=== PATIENT | female | born 1955 | race Caucasian/White ===

== ENCOUNTER → 2023-12-12 13:08 | Outpatient (REF) | payer MEDICARE, OTHER, SELFPAY | LOC: HWRAD 13:08 | PROVIDERS: ATTENDING PHYSICIAN Nurse Practitioner Family; FAMILY PHYSICIAN Internal Medicine | DX: K59.01 Slow transit constipation (principal) | CPT/HCPCS: 74018 ==

== ENCOUNTER → 2023-12-20 13:33 | Outpatient (REF) | payer MEDICARE, OTHER, SELFPAY | LOC: HWRAD 13:33 | PROVIDERS: ATTENDING PHYSICIAN Obstetrics & Gynecology; FAMILY PHYSICIAN Internal Medicine | DX: N95.9 Unspecified menopausal and perimenopausal disorder (principal) | CPT/HCPCS: 77080 ==

== ENCOUNTER → 2024-01-10 06:24 | Day surgery (SDC) | payer MEDICARE, OTHER, SELFPAY | LOC: GI 06:24 | PROVIDERS: ATTENDING PHYSICIAN Internal Medicine Gastroenterology | DX: Z12.11 Encounter for screening for malignant neoplasm of colon (principal); D12.2 Benign neoplasm of ascending colon; D12.3 Benign neoplasm of transverse colon; D12.4 Benign neoplasm of descending colon; Z86.010 Personal history of colon polyps | CPT/HCPCS: 45385; 45380; 88305 ==

== ENCOUNTER → 2024-02-03 19:59 | Outpatient (REF) | payer MEDICARE, OTHER, SELFPAY | LOC: MRI 3T 19:59 | PROVIDERS: ATTENDING PHYSICIAN Physician Assistant Medical; FAMILY PHYSICIAN Internal Medicine | DX: M25.512 Pain in left shoulder (principal) | CPT/HCPCS: 73221 ==

== ENCOUNTER → 2024-03-06 06:43 | Day surgery (SDC) | payer MEDICARE, OTHER, SELFPAY | LOC: GI 06:43 | PROVIDERS: ATTENDING PHYSICIAN Internal Medicine Gastroenterology | DX: Z12.11 Encounter for screening for malignant neoplasm of colon (principal); D12.2 Benign neoplasm of ascending colon; D12.5 Benign neoplasm of sigmoid colon; Z86.010 Personal history of colon polyps | CPT/HCPCS: 45385; 45380; 88305 ==

== ENCOUNTER 2024-06-16 12:23 | Emergency (ER) | payer MEDICARE, OTHER, SELFPAY ==
[2024-06-16 12:25] VITALS: BP 133/79
--- NOTE | 2024-06-16 13:31 | ED.GENMED ---
History of Present Illness
General
Chief Complaint: Musculo-Skeletal Complaint
Source: patient
Exam Limitations: none
Time Seen by Provider: 06/16/24 12:36
Nursing documentation reviewed up to this point in time: agreed with
History of Present Illness
History of Present Illness:
pt is a 69 y/o F
h/o colitis
here with L ankle pain/swelling laterally when she stood up this morning and her foot was asleep so she accidetnaly rolled her L ankle
she is unable to bear weight she says but was able to walk in to triage
nothing taken for pain
she says she has fractured this ankle before previously
no pain in her knee, calf, foot
Past History
Past History
ED Past Medical History: Cancer (Ovarian cancer), GERD (Hiatal hernia) and Other (Lichen sclerosis, interstitial cystitis)
ED Past Surgical History: Gynecological and Other (See H&P-mastectomy GREGORIO/BSO)
Social History
Tobacco: Non-smoker
Alcohol: None
Drug: None
Personal:
Living: with family
Employment: Retired
Family History
Family History: Other (Noncontributory)
Review of Systems
Review of Systems
Allergies reviewed?: Yes
All Other Systems: Not applicable
Phy Exam
Physical Exam
Physical Exam:
GENERAL: Alert , in no apparent distress, comfortable at rest
HEAD: NCAT
CV: 2+ DP PULSES B/L
NEUROLOGICAL: Alert and oriented, no focal neuro deficits, , 5/5 strength, sensation intact, ambulation slight limp right leg
SKIN: Warm and dry, bruising L lateral ankle
MUSCULOSKELETAL: moderate STS left ankle with tenderness to malleolus laterally; pain with inversion and eversion;
no tenderness at the base of the 5th metatarsal, no other foot tenderness
no knee/prox tib/fib tenderness, full painless ROM;
PSYCH: Normal and appropriate interaction.
Course
Orders/Labs/Results
Orders:
Orders
06/16/24 12:25
CR Ankle - Left Min 3 Views Urgent
Comment:
Reason For Exam: injury/pain
Vital Signs
Initial and Last Documented VS:
Initial Vital Signs
Temp Pulse Resp BP Pulse Ox
97.6 F 100 16 133/79 98
06/16/24 12:25 06/16/24 12:25 06/16/24 12:25 06/16/24 12:25 06/16/24 12:25
Last Documented Vital Signs
Temp Pulse Resp BP Pulse Ox
97.6 F 100 16 133/79 98
06/16/24 12:25 06/16/24 12:25 06/16/24 12:25 06/16/24 12:25 06/16/24 12:25
MDM/Problems Addressed
Differential Diagnosis Includes:
ankles prain, ankle fracture
MDM/Problems Addressed:
69 y/o F with previous ankle fracture
stood up and inverted L ankle, heard crack
pain and bruising an dswelling laterlaly
moving ankle well
did ambulate to the ER with limp
no foot tenderness
mod swelling
xray indep reviewed, appreiated subtle abnormality distal fibula on the obliqu e and d/w rads attendin rizwan did not believe this was fracture
walking boot and crutches
f/u ortho prn
*Critical Care Note
Total Time (30-74mins, 75-104mins- exclusive of procedures): Not Applicable
ED Attending Note
-
Portions of this chart may have been created with voice recognition software.� Occasional wrong word or��sound alike� substitutions may have occurred due to the inherent limitations of voice recognition software.
Discharge Plan
Departure
Patient Disposition: Home (Routine Discharge)
Date of Disposition: 06/16/24
Time of Disposition: 13:47
Patient with high blood pressure during this ER visit?: No
Condition: Fair
Covid-19: Not Applicable
Discharge Problem:
Left ankle sprain
Instructions: Sprain (DC)
Prescriptions:
No Action
cholecalciferol (vitamin D3) 1,000 UNITS tablet
1,000 units PO DAILY
L.acidoph, paracasei,B. lactis 1 EACH capsule
1 ea PO DAILY
turmeric 400 MG capsule
1 dose PO DAILY
Activity Restrictions/Additional Instructions:
YOUR XRAY DID NOT SHOW ANY FRACTURE
ELEVATE, ICE OFF AND ON
USE THE BOOT WHEN YOU ARE WALKING
YOU CAN USE A CANE OR WALKER TO HELP WITH THIS
FOLLOW UP WITH ORTHOPEDICS THIS WEEK NEEDED
TYELNOL FOR PAIN
RETURN FOR ANY CONCERNS.
Interventions
Interventions:
*Risk Screen - Suicide Last Done: 06/16/24 12:26
*General Assessment Last Done: 06/16/24 12:38
*Neglect/Abuse Screening Last Done: 06/16/24 12:26
ED- Fall Risk Assessment Last Done: 06/16/24 14:35
*ED COVID-19 Vaccine History Last Done: 06/16/24 12:26
*Nursing Disposition Last Done: 06/16/24 14:35
ED-Musculoskeletal Assessment Last Done: 06/16/24 12:38
Discharge Date and Time
Discharge Date/Time: 06/16/24 14:36
Print Language: MAURITANIAN
== END 2024-06-16 14:36 | disposition home or self-care (01) ==
LOC: EMR 12:23
PROVIDERS: EMERGENCY PHYSICIAN Student in an Organized Health Care Education/Training Program; FAMILY PHYSICIAN Internal Medicine
DX: S93.402A Sprain of unspecified ligament of left ankle, initial encounter (principal); X50.1XXA Overexertion from prolonged static or awkward postures, initial encounter; Z85.43 Personal history of malignant neoplasm of ovary
CPT/HCPCS: 99283; 73610

== ENCOUNTER 2025-07-16 06:21 | Day surgery (SDC) | payer MEDICARE, OTHER, SELFPAY | END 2025-07-16 09:06 | disposition home or self-care (01) | LOC: GI 06:21 | PROVIDERS: ATTENDING PHYSICIAN Internal Medicine Gastroenterology | DX: Z12.11 Encounter for screening for malignant neoplasm of colon (principal); D12.3 Benign neoplasm of transverse colon; D12.4 Benign neoplasm of descending colon; K63.5 Polyp of colon; R21 Rash and other nonspecific skin eruption; Z86.0101 Personal history of adenomatous and serrated colon polyps | CPT/HCPCS: 45385; 45380; 88305 ==